=== PATIENT | female | born 1975 | race Caucasian/White ===

== ENCOUNTER → 2019-05-19 | Outpatient (CLI) | payer OTHER ==
--- NOTE | 2019-05-19 12:38 | REP ---
Clinical: wheezing. Comparison: none. Technique: PA and lateral. Findings: The mediastinum and cardiac silhouette are normal. The lung nick are clear and without acute consolidation, effusion, or pneumothorax. The skeletal structures are intact and normal. Impression: 1. No acute cardiopulmonary process. Electronically Signed by Tej Singh MD 05/19/2019 12:30 P
== END ==
LOC: M LRY 12:14
PROVIDERS: ATTEND Nurse Practitioner Family
DX: J02.9 Acute pharyngitis, unspecified (principal)

== ENCOUNTER → 2019-05-28 | Outpatient (REF) | payer OTHER | LOC: M LAB REF 15:54 | DX: D23.9 Other benign neoplasm of skin, unspecified (principal) ==

== ENCOUNTER → 2020-06-26 | Outpatient (CLI) | payer OTHER | LOC: M LABSMTC 11:51 | PROVIDERS: ATTEND Orthopaedic Surgery | DX: Z11.59 Encounter for screening for other viral diseases (principal) ==

== ENCOUNTER → 2020-07-01 | Outpatient (REF) | payer OTHER | LOC: M LAB REF 17:21 | PROVIDERS: ATTEND Orthopaedic Surgery | DX: M79.4 Hypertrophy of (infrapatellar) fat pad (principal) ==

== ENCOUNTER → 2020-12-09 | Outpatient (REF) ==
--- NOTE | 2020-12-11 13:57 | SLEEPHOME ---
DATE: 12/09/2020 ORDERED BY: Yann Steel DO Diagnostic home sleep testing was performed due to concern for the obstructive sleep apnea syndrome. For testing, a nocturnal T3 respiratory monitoring device was used. Continuous record was made of pulse, oxygen saturation, air flow, chest and abdominal strain, and body position. Five hours and 59 minutes of data were reviewed. There were 5 hours and 59 minutes marked as time in bed. During the interval marked time in bed, there were 26 respiratory events identified of 10 seconds in duration or greater for a respiratory event index of 4.3. The events were primarily obstructive. Baseline pulse rate was 68 beats per minute. Pulse rate ranged 55 to 101. Baseline saturation was 93%. Saturations fell briefly to 89%. Testing was performed in the supine position. IMPRESSION: Borderline diagnostic home sleep testing with repetitive respiratory events and oxygen desaturations to 89% and a respiratory event index of 4.3. RECOMMENDATION: Sleep position retraining for avoidance of the supine posture may be helpful. If the patient's symptoms persist, referral for a formal sleep evaluation may be helpful.
== END ==
LOC: M SLEEP HO 09:02
PROVIDERS: ATTEND Neuromusculoskeletal Medicine & OMM
DX: G47.30 Sleep apnea, unspecified (principal)